=== PATIENT | male | born 1985 | race Caucasian/White ===

== ENCOUNTER 2017-06-03 07:41 | Day surgery (SDC) | payer MEDICAID ==
[~2017-06-03] VITALS: Ht 182.9 cm; Wt 80.7 kg
[2017-06-03] MEDS ORDERED: PEPCID AC20 MG PO (08:48)
[2017-06-03] MEDS ORDERED: ADVIL200 MG PO (08:49)
[2017-06-03] MEDS ORDERED: PROAIR HFA0.09 MG/AC IH (08:50)
[2017-06-03 08:58] VITALS: BP 116/78; PULSE 97; TEMP 97.9
[2017-06-03 11:15] VITALS: BP 119/67; PULSE 76; TEMP 97.4
[2017-06-03 11:30] VITALS: BP 128/71; PULSE 65
[2017-06-03 11:43] VITALS: TEMP 97.5
[2017-06-03 11:45] VITALS: BP 123/69; PULSE 69
[2017-06-03 12:00] VITALS: BP 111/64; PULSE 74
[2017-06-03] MEDS ORDERED: NORCO 325 MG-51 TAB PO (12:17)
== END 2017-06-03 12:35 | disposition home or self-care (01) ==
LOC: SDCO 07:41 → INPTSU 07:50 → SDCO 08:05
DX: G56.21 Lesion of ulnar nerve, right upper limb (principal); G56.01 Carpal tunnel syndrome, right upper limb; I10 Essential (primary) hypertension; K21.9 Gastro-esophageal reflux disease without esophagitis; J45.909 Unspecified asthma, uncomplicated; F43.10 Post-traumatic stress disorder, unspecified; F41.0 Panic disorder [episodic paroxysmal anxiety]; F17.210 Nicotine dependence, cigarettes, uncomplicated
CPT/HCPCS: OP; J0690; J2250; J2405; J2704; J3010; J7120